=== PATIENT | female | born 1990 | race Caucasian/White ===

== ENCOUNTER 2018-03-19 20:09 | Emergency (ER) | payer MEDICAID ==
[~2018-03-19] VITALS: Ht 165.1 cm; Wt 53.5 kg
[2018-03-19 20:37] VITALS: BP 118/72
[2018-03-19] MEDS ORDERED: LIDOCAINE 1% INJ 50 ML MDV IJ ONE ×2 (21:00)
== END 2018-03-19 21:56 | disposition home or self-care (01) ==
LOC: ER 20:11
DX: S61.512A Laceration without foreign body of left wrist, initial encounter (principal); W26.8XXA Contact with other sharp object(s), not elsewhere classified, initial encounter; Y93.89 Activity, other specified; Y92.89 Other specified places as the place of occurrence of the external cause; Y99.8 Other external cause status
CPT/HCPCS: 12001; 99283; A4606; A6402; J3490

== ENCOUNTER 2018-03-28 13:35 | Emergency (ER) | payer MEDICAID ==
[~2018-03-28] VITALS: Ht 165.1 cm; Wt 53.5 kg
[2018-03-28 13:43] VITALS: BP 116/73
--- NOTE | 2018-03-28 14:03 | NUR ---
Patient discharged to home in stable condition. Written and verbal after care instructions given. Patient verbalizes understanding of instruction.
== END 2018-03-28 14:02 | disposition home or self-care (01) ==
LOC: ER 13:41
DX: S61.512D Laceration without foreign body of left wrist, subsequent encounter (principal); Z60.2 Problems related to living alone; X58.XXXD Exposure to other specified factors, subsequent encounter
CPT/HCPCS: Z7502